=== PATIENT | female | born 1945 | race Caucasian/White ===

== ENCOUNTER → 2017-03-07 | Outpatient (CLI) | payer MEDICARE, OTHER | LOC: RAD 18:16 | DX: M79.662 Pain in left lower leg (principal) ==

== ENCOUNTER → 2017-03-15 | Outpatient (CLI) | payer MEDICARE, OTHER | LOC: RAD 09:22 | DX: E03.4 Atrophy of thyroid (acquired) (principal); E78.2 Mixed hyperlipidemia; R23.2 Flushing; M25.561 Pain in right knee; M17.0 Bilateral primary osteoarthritis of knee ==